=== PATIENT | male | born 1970 | race Caucasian/White ===

== ENCOUNTER 2021-06-28 22:01 | Emergency (ER) | payer OTHER ==
[~2021-06-28] VITALS: Ht 180.3 cm; Wt 102.1 kg
[2021-06-28 22:20] VITALS: BP 130/70
--- NOTE | 2021-06-28 22:29 | NUR ---
Patient discharged to home in stable condition. Written and verbal after care instructions given. Patient verbalizes understanding of instruction. Pt ambulatory with a steady gait
== END 2021-06-28 23:58 | disposition home or self-care (01) ==
LOC: ER 22:03
DX: U07.1 COVID-19 (principal)
CPT/HCPCS: 99283; C9803; U0003